=== PATIENT | male | born 1955 | race Caucasian/White ===

== ENCOUNTER 2016-10-11 16:57 | Emergency (ER) | payer OTHER ==
[~2016-10-11 16:57] MED LIST: ASPIRIN 325MG325 MG PO; DIABETA PO; GLUCOPHAGE 500500 MG PO; LOPRESSOR50 MG PO; MICROZIDE12.5 MG PO; MOBIC7.5 MG PO; NITROSTAT0.4 MG SL; ULTRAM50 MG PO; ZESTRIL10 MG PO; ZOCOR40 MG PO
[2016-10-11 17:52] LABS: HEMOGLOBIN 13.6 gm/dl (14.0-17.5); RED BLOOD COUNT 4.55 M/UL (4.20-5.50); WHITE BLOOD COUNT 8.2 K/UL (4.5-11.0)
[2016-10-11 18:05] LABS: BUN/CREATININE RATIO 23 (0-10)
== END 2016-10-12 13:20 | disposition home or self-care (01) ==
LOC: ER1 16:57 → ZEROF 10-12 01:30
PROVIDERS: Emergency Medicine
DX: R07.89 Other chest pain (principal); I10 Essential (primary) hypertension; E78.5 Hyperlipidemia, unspecified; E11.9 Type 2 diabetes mellitus without complications; I25.10 Atherosclerotic heart disease of native coronary artery without angina pectoris; G47.30 Sleep apnea, unspecified; J45.909 Unspecified asthma, uncomplicated; E66.9 Obesity, unspecified; R09.02 Hypoxemia; Z90.49 Acquired absence of other specified parts of digestive tract; Z79.82 Long term (current) use of aspirin; Z79.02 Long term (current) use of antithrombotics/antiplatelets; Z79.899 Other long term (current) drug therapy; Z87.891 Personal history of nicotine dependence; Z68.36 Body mass index [BMI] 36.0-36.9, adult; Z98.61 Coronary angioplasty status
CPT/HCPCS: 36415; 71020; 80053; 80061; 81001; 82550; 82553; 82962; 83690; 83874; 83880; 84484; 85025; 85379; 87040; 93005; 94640; 94664; 99285; G0378; J1815

== ENCOUNTER 2016-10-27 14:39 | Observation (INO) | payer OTHER ==
[~2016-10-27] VITALS: Ht 182.9 cm; Wt 121.2 kg
[2016-10-27 17:44] LABS: HEMOGLOBIN 13.9 gm/dl (14.0-17.5); RED BLOOD COUNT 4.63 M/UL (4.20-5.50); WHITE BLOOD COUNT 11.7 K/UL (4.5-11.0)
[2016-10-27 18:02] LABS: BUN/CREATININE RATIO 29 (0-10)
[2016-10-28] MEDS ORDERED: VENTOLIN HFA 66.7 GM INH (00:51)
[2016-10-28] MEDS ORDERED: PLAVIX 75 MG TA75 MG PO (00:52)
[2016-10-28] MEDS ORDERED: LISINOPRIL20 MG PO (00:52)
[2016-10-28] MEDS ORDERED: HYDROCHLOROTHIA25 MG PO (00:52)
[2016-10-28] MEDS ORDERED: METFORMIN HCL500 M2 PO (00:53)
[2016-10-28] MEDS ORDERED: SYMBICORT 16010.2 GM INH (00:54)
[2016-10-28] MEDS ORDERED: HUMALOG100 UNIT/1 SC (00:54)
[2016-10-28 06:23] LABS: HEMOGLOBIN 13.1 gm/dl (14.0-17.5); RED BLOOD COUNT 4.4 M/UL (4.20-5.50); WHITE BLOOD COUNT 9.2 K/UL (4.5-11.0)
[2016-10-28 07:08] LABS: BUN/CREATININE RATIO 27 (0-10)
[2016-10-28] MEDS ORDERED: ELAVIL 10 MG TA10 MG PO (18:34)
[2016-10-28] MEDS ORDERED: FLONASE 0.05% N16 GM (18:35)
== END 2016-10-28 19:55 | disposition home or self-care (01) ==
LOC: ER1 14:39 → M/S 19:43 → ZEROF 19:43 → M/S 23:55
PROVIDERS: Physician Assistant; ADMIT Internal Medicine
DX: R07.89 Other chest pain (principal); R51 Headache; R20.9 Unspecified disturbances of skin sensation; R53.1 Weakness; I25.10 Atherosclerotic heart disease of native coronary artery without angina pectoris; I10 Essential (primary) hypertension; E78.5 Hyperlipidemia, unspecified; E11.9 Type 2 diabetes mellitus without complications; J44.9 Chronic obstructive pulmonary disease, unspecified; G47.30 Sleep apnea, unspecified; E66.9 Obesity, unspecified; Z79.82 Long term (current) use of aspirin; Z79.02 Long term (current) use of antithrombotics/antiplatelets; Z79.899 Other long term (current) drug therapy; Z90.49 Acquired absence of other specified parts of digestive tract; Z87.891 Personal history of nicotine dependence
CPT/HCPCS: ECHO; 36415; 70450; 70553; 71020; 80048; 80053; 82550; 82553; 82962; 83735; 83874; 84484; 85025; 93005; 93306; 93880; 94640; 94664; 99285; A9577; G0378

== ENCOUNTER 2021-02-26 12:05 | Observation (INO) | payer MEDICARE ==
[~2021-02-26] VITALS: Ht 182.9 cm; Wt 122.5 kg
[~2021-02-26 12:05] MED LIST changes: +ACCU-CHEK SOFT1 EACH PO; -ASPIRIN 325MG325 MG PO; +ASPIRIN EC81 MG PO; +BENADRYL 25MG C25 MG PO; +CEFUROXIME500 MG PO; +CLARITIN10 MG PO; +COZAAR100 MG PO; +CRESTOR20 MG PO; +DELSYM30 MG/5 ML PO; +DIOVAN320 MG PO; +ELAVIL 10 MG TA10 MG PO; +FLONASE 0.05% N16 GM; +FLORINEF 0.1 M0.1 MG PO; +GLIPIZIDE ER2.5 MG PO; +HUMALOG MI100 UNIT/2 SQ; +HUMALOG100 UNIT/1 SC; +HUMALOG100 UNIT/1 SQ; +HYDROCHLOROTHIA25 MG PO; +JARDIANCE25 MG PO; +LANTUS INS100 UTS/M1 SQ; +LISINOPRIL20 MG PO; +MEDROL4 MG PO; +METFORMIN HCL500 M2 PO; +MIRALAX 119 GR119 GM PO; +PLAVIX 75 MG TA75 MG PO; +PREDNISONE20 MG PO; +PROVENTIL HFA6.7 GM INH; +SOLIQUA SQ; +SYMBICORT 16010.2 GM INH; +VENTOLIN HFA 66.7 GM INH; +ZITHROMAX500 MG PO; +ZOFRAN ODT 4 MG4 MG PO
[2021-02-26 12:46] LABS: HEMOGLOBIN 14.6 gm/dl (14.0-17.5); RED BLOOD COUNT 4.66 M/UL (4.20-5.50); WHITE BLOOD COUNT 7.5 K/UL (4.5-11.0)
[2021-02-26 13:07] LABS: BUN/CREATININE RATIO 35 (0-10)
[2021-02-27 04:18] LABS: HEMOGLOBIN 14.8 gm/dl (14.0-17.5); RED BLOOD COUNT 4.71 M/UL (4.20-5.50); WHITE BLOOD COUNT 8.2 K/UL (4.5-11.0)
[2021-02-27 04:39] LABS: BUN/CREATININE RATIO 36 (0-10)
[2021-02-27] MEDS ORDERED: HUMALOG100 UNIT/1 SQ (16:47)
[2021-02-27] MEDS ORDERED: TRAZODONE HCL50 MG PO (16:48)
[2021-02-27] MEDS ORDERED: LANTUS SOL100 UNIT/1 SQ (16:51)
== END 2021-02-27 18:18 | disposition home or self-care (01) ==
LOC: ER1 12:05 → CDU 18:00
PROVIDERS: Physician Assistant; Physician Assistant Medical; ADMIT Internal Medicine
DX: R07.89 Other chest pain (principal); I16.0 Hypertensive urgency; I11.0 Hypertensive heart disease with heart failure; I50.9 Heart failure, unspecified; I25.10 Atherosclerotic heart disease of native coronary artery without angina pectoris; I25.2 Old myocardial infarction; E78.5 Hyperlipidemia, unspecified; E11.9 Type 2 diabetes mellitus without complications; G47.33 Obstructive sleep apnea (adult) (pediatric); J44.9 Chronic obstructive pulmonary disease, unspecified; E66.01 Morbid (severe) obesity due to excess calories; Z20.822 Contact with and (suspected) exposure to COVID-19; Z95.5 Presence of coronary angioplasty implant and graft; Z86.73 Personal history of transient ischemic attack (TIA), and cerebral infarction without residual deficits; Z79.82 Long term (current) use of aspirin; Z79.02 Long term (current) use of antithrombotics/antiplatelets; Z79.4 Long term (current) use of insulin; Z79.899 Other long term (current) drug therapy
CPT/HCPCS: 71045; 71046; 78452; 80048; 80053; 82550; 82553; 82962; 83874; 83880; 84484; 85025; 85379; 93005; 93017; 99285; A9502; J2785; U0002

== ENCOUNTER 2021-03-22 11:12 | Emergency (ER) | payer MEDICARE ==
[~2021-03-22 11:12] MED LIST changes: +LANTUS SOL100 UNIT/1 SQ; +TRAZODONE HCL50 MG PO
[2021-03-22 12:07] LABS: HEMOGLOBIN 14.8 gm/dl (14.0-17.5); RED BLOOD COUNT 4.77 M/UL (4.20-5.50); WHITE BLOOD COUNT 10.3 K/UL (4.5-11.0)
[2021-03-22 12:31] LABS: BUN/CREATININE RATIO 37 (0-10)
== END 2021-03-22 17:15 | disposition short-term general hospital (02) ==
LOC: ER1 11:12
PROVIDERS: Physician Assistant
DX: R07.89 Other chest pain (principal); R20.2 Paresthesia of skin; R55 Syncope and collapse; Z20.822 Contact with and (suspected) exposure to COVID-19; E11.9 Type 2 diabetes mellitus without complications; I10 Essential (primary) hypertension; J44.9 Chronic obstructive pulmonary disease, unspecified; Z79.899 Other long term (current) drug therapy
CPT/HCPCS: 70450; 71045; 80053; 82550; 82553; 83874; 84484; 85025; 85379; 93005; 99285; U0002

== ENCOUNTER → 2021-05-17 | Emergency (ER) | payer MEDICARE ==
[~2021-05-17] MED LIST changes: +AEROECLIPSE II1 EACH MC; +ALBUTEROL1.25 MG/3 INH; +PULMICORT1 MG/2 ML INH
[2021-05-17 12:58] LABS: HEMOGLOBIN 14.8 gm/dl (14.0-17.5); RED BLOOD COUNT 4.76 M/UL (4.20-5.50); WHITE BLOOD COUNT 12.2 K/UL (4.5-11.0)
[2021-05-17 13:22] LABS: BUN/CREATININE RATIO 39 (0-10)
== END | disposition home or self-care (01) ==
LOC: ER1 11:43
PROVIDERS: Nurse Practitioner
DX: J44.1 Chronic obstructive pulmonary disease with (acute) exacerbation (principal); E11.9 Type 2 diabetes mellitus without complications; E78.5 Hyperlipidemia, unspecified; I11.9 Hypertensive heart disease without heart failure; Z20.822 Contact with and (suspected) exposure to COVID-19; Z87.891 Personal history of nicotine dependence; Z79.82 Long term (current) use of aspirin; Z86.73 Personal history of transient ischemic attack (TIA), and cerebral infarction without residual deficits
CPT/HCPCS: 36415; 36600; 71045; 80053; 81001; 82550; 82553; 82803; 83874; 84484; 85025; 87040; 93005; 94664; 96374; 99285; J2930; U0002

== ENCOUNTER → 2021-07-09 | Outpatient (CLI) | payer MEDICARE | LOC: RAD 12:56 | DX: J20.9 Acute bronchitis, unspecified (principal) | CPT/HCPCS: 71046 ==

== ENCOUNTER 2021-10-29 12:08 | Emergency (ER) | payer MEDICARE ==
[~2021-10-29 12:08] MED LIST changes: +ALBUTEROL2.5 MG/3 M INH; +CLOPIDOGREL75 MG PO; +GLUCOTROL XL 22.5 MG PO; +ISOSORBIDE MONO30 MG PO; +LOPRESSOR 25 MG25 MG PO; +LOSARTAN POTAS100 MG PO; +MONTELUKAST SOD10 MG PO; +TRULICITY0.75 MG/0. SQ; +VITAMIN D310 MC2 PO
[2021-10-29] MEDS ORDERED: IBUPROFEN600 MG PO (15:16)
[2021-10-29] MEDS ORDERED: CYCLOBENZAPRINE10 MG PO (15:16)
== END 2021-10-29 15:54 | disposition home or self-care (01) ==
LOC: ER1 12:08
DX: S09.90XA Unspecified injury of head, initial encounter (principal); S13.9XXA Sprain of joints and ligaments of unspecified parts of neck, initial encounter; S23.3XXA Sprain of ligaments of thoracic spine, initial encounter; S33.5XXA Sprain of ligaments of lumbar spine, initial encounter; I25.2 Old myocardial infarction; J44.9 Chronic obstructive pulmonary disease, unspecified; E11.9 Type 2 diabetes mellitus without complications; I11.0 Hypertensive heart disease with heart failure; I50.9 Heart failure, unspecified; E78.5 Hyperlipidemia, unspecified; W01.0XXA Fall on same level from slipping, tripping and stumbling without subsequent striking against object, initial encounter
CPT/HCPCS: 70450; 71045; 72125; 72128; 72131; 99284

== ENCOUNTER 2021-12-12 00:08 | Emergency (ER) | payer MEDICARE ==
[~2021-12-12 00:08] MED LIST changes: +CYCLOBENZAPRINE10 MG PO; +IBUPROFEN600 MG PO
== END 2021-12-12 00:58 | disposition home or self-care (01) ==
LOC: ER1 00:08
DX: S61.303A Unspecified open wound of left middle finger with damage to nail, initial encounter (principal); I51.9 Heart disease, unspecified; J44.9 Chronic obstructive pulmonary disease, unspecified; Z86.73 Personal history of transient ischemic attack (TIA), and cerebral infarction without residual deficits; W23.0XXA Caught, crushed, jammed, or pinched between moving objects, initial encounter
CPT/HCPCS: 99282

== ENCOUNTER → 2022-01-17 | Outpatient (CLI) | payer MEDICARE | LOC: EXRD 09:01 | DX: R10.11 Right upper quadrant pain (principal); K76.0 Fatty (change of) liver, not elsewhere classified | CPT/HCPCS: 76705 ==